=== PATIENT | male | born 1985 | race American Indian/Alaskan Native ===

== ENCOUNTER 2018-02-06 17:33 | Emergency (ER) | payer SELFPAY ==
[2018-02-06 17:48] VITALS: BP 135/74
[2018-02-06] MEDS ORDERED: XYLOCAINE 1% MPF 5 mL INFILTRATI ONE (18:38)
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
[2018-02-06] MEDS ORDERED: BACTRIM DS PO ONE (19:50)
== END 2018-02-06 20:44 | disposition home or self-care (01) ==
LOC: ED 17:33
DX: L02.811 Cutaneous abscess of head [any part, except face] (principal); F17.200 Nicotine dependence, unspecified, uncomplicated
CPT/HCPCS: 99282

== ENCOUNTER 2018-02-09 20:08 | Emergency (ER) | payer SELFPAY ==
[2018-02-09] MEDS ORDERED: DIPRIVAN 10 MG/ML IV ONE (20:48)
[2018-02-09] MEDS ORDERED: ZOFRAN IV ONE (20:48)
[2018-02-09] MEDS ORDERED: KETALAR IV ONE (20:48)
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
[2018-02-09] MEDS ORDERED: KETAMINE HCL IV ONE (20:54)
[2018-02-09] MEDS ORDERED: TORADOL IV ONE (21:00)
--- NOTE | 2018-02-09 21:08 | XRay Report ---
FINAL REPORT PROCEDURE: XR ELBOW 3+V LT TECHNIQUE: LEFT elbow radiographs, including AP, lateral, and oblique views. CPT 36277 HISTORY: deformity/pain r/t injury COMPARISON: No prior studies are available for comparison. FINDINGS: There is an anterior dislocation of the humerus in relation to the ulna. Overlap of the osseous structures is by approximately 3 centimeters. No definitive fracture is noted. Recheck radiograph after reduction is recommended. IMPRESSION: Dislocation of the humerus anterior relation to the proximal ulna. No definitive fracture is seen. Repeat radiographs after reduction are recommended.
[2018-02-09] MEDS ORDERED: NACL 0.9% 1000 ML 1,000 ML ONE (21:09)
--- NOTE | 2018-02-09 22:10 | XRay Report ---
FINAL REPORT PROCEDURE: XR ELBOW 1V LT TECHNIQUE: LEFT elbow radiographs, lateral views. HISTORY: s/p reduction COMPARISON: Earlier the same date FINDINGS: The dislocation has been reduced. No definitive fracture is seen on this single projection. IMPRESSION: Reduced dislocation. No evident fracture is seen.
[2018-02-09] MEDS ORDERED: TORADOL ONE (22:11)
[2018-02-09 23:54] VITALS: BP 128/85
--- NOTE | 2018-02-10 00:18 | XRay Report ---
FINAL REPORT PROCEDURE: XR ELBOW 2V LT TECHNIQUE: LEFT elbow radiographs, including AP and lateral views. HISTORY: LEFT ELBOW PAIN AFTER manipulation COMPARISON: Earlier the same date FINDINGS: The left elbow is contained within a posterior splint. No evident fracture. No dislocation is noted on this study. Mild soft tissue swelling is noted IMPRESSION: No evidence of an acute fracture. No dislocation. The elbow is contained in a posterior splint.
== END 2018-02-09 23:54 | disposition home or self-care (01) ==
LOC: ED 20:08
DX: S53.105A Unspecified dislocation of left ulnohumeral joint, initial encounter (principal); F31.9 Bipolar disorder, unspecified; F17.200 Nicotine dependence, unspecified, uncomplicated; W18.30XA Fall on same level, unspecified, initial encounter; Y93.89 Activity, other specified; Y99.8 Other external cause status; Y92.89 Other specified places as the place of occurrence of the external cause
CPT/HCPCS: 24600; 73070; 73080; 94760; 96374; 96375; 99284; J1885; J2405; J2704; J7030